=== PATIENT | female | born 1940 | race Caucasian/White ===

== ENCOUNTER → 2016-11-04 | Outpatient (CLI) | payer MEDICARE | LOC: GMAL 14:00 | PROVIDERS: ATTEND Family Medicine | DX: D53.9 Nutritional anemia, unspecified (principal) ==

== ENCOUNTER → 2017-02-03 | Outpatient (CLI) | payer MEDICARE | END | disposition home or self-care (01) | LOC: GMAL 14:38 | PROVIDERS: ATTEND Family Medicine | DX: D53.9 Nutritional anemia, unspecified (principal) ==

== ENCOUNTER → 2017-04-03 | Outpatient (CLI) | payer MEDICARE ==
--- NOTE | 2017-04-03 16:49 | MRI ---
EXAM: Brain w/wo Contrast CLINICAL INDICATION: 76-year-old female with headache. Technologist note: Per patient, her doctor thinks she had a stroke one week ago with right-sided numbness and left-sided headache. COMPARISON: None. TECHNIQUE: Multiplanar, multi-sequence MR imaging of the brain pre-and post intravenous administration of gadolinium. FINDINGS: No abnormal increased signal intensity is present on diffusion-weighted imaging to suggest restricted diffusion/acute infarction. However, a tiny linear focus of increased signal intensity is present within the RIGHT basal ganglia measuring 10 x 3 mm, (series 204, image 13) a nonspecific finding without associated decreased ADC signal intensity to suggest acute infarction, however may represent sequela of recent, although age indeterminate lacunar infarction, versus T2 shine through. T2/flair weighted imaging reveals multifocal areas of patchy increased signal intensity present in a subcortical and periventricular deep white matter distribution, a nonspecific finding however may be seen with small vessel ischemic change. T2-weighted imaging reveals a subcentimeter focal area of increased signal intensity present within the LEFT caudate compatible with sequela of chronic lacunar infarction. FLAIR weighted imaging reveals a focal area of increased signal intensity with central decreased signal intensity present at the level of the LEFT frontal periventricular deep white matter suggest cystic type lacunar infarction. There is no evidence of intracranial hemorrhage, mass or edema. Midline structures are within normal limits. No abnormal post gadolinium enhancement. The ventricles and sulci are slightly prominent suggesting underlying volume loss. Major intracranial flow voids are identified. The paranasal sinuses and mastoid air cells are patent. IMPRESSION: 1. No abnormal increased signal intensity is present on diffusion-weighted imaging to suggest restricted diffusion/acute infarction. 2. Tiny linear focus of increased signal intensity is present within the RIGHT basal ganglia measuring 10 x 3 mm, a nonspecific finding without associated decreased ADC signal intensity to suggest acute infarction, however may represent sequela of recent, although age indeterminate lacunar infarction versus T2 shine through. 3. T2/flair weighted imaging reveals multifocal areas of patchy increased signal intensity present in a subcortical and periventricular deep white matter distribution, a nonspecific finding however may be seen with small vessel ischemic change. Electronically signed by: Sherice Rosario MD 04/03/2017 4:48 PM CDT Workstation: [id number]
== END | disposition home or self-care (01) ==
LOC: MRI 10:35
PROVIDERS: ATTEND Family Medicine
DX: R51 Headache (principal)

== ENCOUNTER → 2017-05-12 | Outpatient (CLI) | payer MEDICARE | END | disposition home or self-care (01) | LOC: GMAL 10:47 | PROVIDERS: ATTEND Family Medicine | DX: D53.9 Nutritional anemia, unspecified (principal); E55.9 Vitamin D deficiency, unspecified ==

== ENCOUNTER → 2017-12-17 | Outpatient (CLI) | payer MEDICARE | LOC: GMAL 16:39 | PROVIDERS: ATTEND Family Medicine | DX: D50.8 Other iron deficiency anemias (principal) ==

== ENCOUNTER → 2017-12-31 | Outpatient (CLI) | payer MEDICARE | LOC: GMAL 17:40 | PROVIDERS: ATTEND Family Medicine | DX: R53.82 Chronic fatigue, unspecified (principal); E34.9 Endocrine disorder, unspecified ==

== ENCOUNTER → 2018-04-09 | Outpatient (CLI) | payer MEDICARE ==
--- NOTE | 2018-04-09 09:29 | CT ---
EXAM DESCRIPTION: Abdomen/Pelvis w/wo Contrast: Computed Tomography. CLINICAL HISTORY: ABDOMINAL PAIN COMPARISON: None. TECHNIQUE: Spiral-axial scans at 5.0 mm intervals through the abdomen and pelvis before and after standard dose nonionic IV contrast. Coronal and sagittal 2.0 mm reconstructions. No delayed scans. No adverse reactions. Total Exam DLP 507.37 mGy - cm. This exam was performed according to our departmental CT dose-optimization program which includes automated exposure control, adjustment of the mA and/or kV according to patient size and/or use of iterative reconstruction technique; to reduce radiation dose to as low as reasonably achievable (ALARA). FINDINGS: Lung bases and pleura: Minimal atelectasis in the posterior left lower lobe and bilateral pleural-based blebs. No acute infiltrate or pleural effusion. Coronary artery calcifications and stents. Liver, Stomach, Spleen, Adrenal Glands: Minimal intrahepatic biliary dilatation. Stomach distally with narrowed passage of the antrum and pylorus between the aorta and the abdominal wall (1.7 cm, series 4, image 36). Stomach otherwise Unremarkable. Other solid organs are negative. Third portion of the duodenum also narrow passage between the aorta and the anterior abdominal wall (1.2 cm, image 41). No bowel obstruction. Pancreas, Gallbladder, Ducts: Gallbladder is visualized. Common bile duct nondilated. Pancreas is atrophic. Kidneys and Ureters small subcentimeter cyst lateral right kidney. Otherwise unremarkable. Mesentery: No free fluid or free air. No fatty stranding or fascial thickening. Aorta: 2.6 cm diameter at the L2 level just above and below the renal artery origins. Approximately 25-30% diameter narrowing at these levels with peripheral calcification and intimal wall thickening. This is adjacent to the level where the duodenum and distal stomach pass over the anterior aorta. Lumbar spine abutting the posterior aorta. Marked calcification distally extending into the bilateral common iliac arteries. Celiac axis and the SMA origin at approximately 1:30 clock position from the aorta with moderate calcification. Calcification of the ostia of the bilateral renal arteries and the PANCHO.. Small Bowel: Scattered fluid and gas but no significant air-fluid levels or distention. Terminal Ileum/Cecum: Normal caliber. Normal caliber of the appendix containing gas. No fatty stranding or fluid. Colon: Minimal fecal material and gas proximally mid-colon. More decompressed distally. Pelvic Organs: Vaginal cuff is unremarkable. Ovaries are not seen. Minimal fluid in the cul-de-sac. Spine and Bony Pelvis: Spondylosis L5-S1 with bulging disc. Grade 1 anterolisthesis at L4-5 with bulging disc. Mild bilateral hip arthrosis.. Abdominal Wall/Back Soft Tissues: Small left fatty inguinal hernia not containing bowel. Minimal diastases at the umbilicus but not containing bowel. IMPRESSION: 1. Ectasia of the abdominal aorta and intimal wall thickening and calcification with 2.6 cm diameter above and below the renal arteries. 2.6 cm AAA Recommend follow-up every 5 years. Reference: J Vasc Surg 2009 Oct;50(4 Suppl):S2-49. 2. Ectatic aorta is compressing the third and fourth segment of the duodenum and the distal stomach against the abdominal wall which is only 1.5 cm distance due to patient body habitus. In addition spine is abutting the posterior aorta. This could be causing intermittent partial obstruction with stomach and duodenal peristalsis. Consider gastroenterology consultation. 3. Atherosclerosis of the origins of the celiac axis and SMA which exit the aorta at the 1:30 clock position. Also atherosclerotic calcification of the origins of the renal arteries and PANCHO. Significant atherosclerosis of the bilateral common iliac arteries. Consider CTA abdominal aorta and lower extremity runoff. 4. Minimal fluid in the cul-de-sac. No ascites. No free air or bowel obstruction. 5. Subcentimeter cyst lateral left kidney. Small fatty left inguinal hernia not containing bowel. Coronary artery calcifications and stents. Emphysematous changes in the lung bases. Electronically signed by: Nacho Disla MD 04/09/2018 9:27 AM CDT
--- NOTE | 2018-04-09 11:14 | US ---
Exam: Bilateral lower extremity arterial Doppler sonogram CLINICAL HISTORY: Claudication lower extremities TECHNIQUE: Doppler sonographic evaluation of the bilateral lower extremities was performed. FINDINGS: Right Submitted sonographic images reveal calcified plaque in the right superficial femoral artery and popliteal artery. There is positive flow in the vessels below the right knee. The following peak systolic flow flow velocity measurements were obtained: Common femoral artery velocity equals 81 centimeters per second , triphasic. Superficial femoral artery velocity equals 61-98 centimeters per second , biphasic. Popliteal artery velocity equals 66 centimeters per second , biphasic. Peroneal artery velocity equals 72 centimeters per second , biphasic. Posterior tibial artery shows no flow on Doppler exam. Dorsalis pedis artery velocity equals 26 centimeters per second , biphasic. Left Submitted sonographic images reveal calcified plaque in the left superficial femoral and popliteal arteries. There is positive flow in the vessels below the left knee. The following peak systolic flow flow velocity measurements were obtained: Common femoral artery velocity equals 68 centimeters per second , biphasic. Superficial femoral artery velocity equals 77-91 centimeters per second , biphasic. Popliteal artery velocity equals 44 centimeters per second , biphasic. Peroneal artery velocity equals 51.5 centimeters per second , biphasic. Posterior tibial artery flow is not identified on Doppler exam. Dorsalis pedis artery velocity equals 28 centimeters per second , biphasic. IMPRESSION: No flow is seen in the posterior tibial arteries on either side. Otherwise normal velocity multiphasic flow in the lower extremity arteries bilaterally. Electronically signed by: Abdullahi Florian MD 04/09/2018 11:12 AM CDT
== END ==
LOC: CT 07:41
PROVIDERS: ATTEND Family Medicine
DX: R10.9 Unspecified abdominal pain (principal); I73.89 Other specified peripheral vascular diseases; I77.819 Aortic ectasia, unspecified site; I70.0 Atherosclerosis of aorta; I70.1 Atherosclerosis of renal artery

== ENCOUNTER → 2018-04-22 | Outpatient (CLI) | payer MEDICARE ==
--- NOTE | 2018-04-22 14:05 | MRI ---
EXAM DESCRIPTION: Lumbar Spine w/o Contrast : Magnetic Resonance Imaging. CLINICAL HISTORY: R29.898. Other symptoms and signs involving the musculoskeletal system. COMPARISON: None. TECHNIQUE: Multiplanar, multiple standard sequences, non contrast MRI, lumbar spine. FINDINGS: L5-S1: T2 axial sequence #501, image 3. Disc desiccation and minimal disc space loss. Tiny anterior and posterior bulge. Left facet arthrosis. Modic type I endplate reactive changes on the left. Disc spur complex encroaching on the exiting left L5 nerve. Disc in the right foramen abutting the right L5 nerve. Rudimentary S1-S2 disc. L4-5: Disc desiccation and disc space maintained. Grade 1 anterolisthesis. Posterior broad-based bulge with left paracentral right T2-weighted annular fissure. Ligament hypertrophy and facet arthrosis bilaterally. Mild to moderate canal narrowing. Mild foraminal narrowing bilaterally. L3-4 minimal disc desiccation. No significant bulging. Mild flavum ligament hypertrophy. Canal and foramina are patent. L2-3: Normal signal in the disc and disc space maintained. Posterior elements unremarkable. Canal and foramina are patent. L1-2: Normal signal in the disc and disc space maintained. Posterior elements unremarkable. Canal and foramina are patent. T12-L1: Minimal disc desiccation and disc space maintained. Posterior elements unremarkable. Canal and foramina are patent. Conus terminates at this level. Minimal lumbar dextroscoliosis. Spondylosis anatomic. Paravertebral soft tissues minimal muscle atrophy.. Otherwise normal marrow signal in the remaining vertebral bodies and the posterior elements. Vertebral bodies are not compressed at any level. IMPRESSION: 1. Disc desiccation at multiple levels. Mild spondylosis on the left side of L5-S1 with disc spur complex encroaching on the exiting left L5 nerve. Correlate for radiculopathy. 2. L4-5 disc desiccation and grade 1 anterolisthesis. Left posterior disc annular fissure. Mild to moderate canal and foraminal narrowing. Electronically signed by: Nacho Disla MD 04/22/2018 2:03 PM CDT
--- NOTE | 2018-04-23 09:23 | CT ---
EXAM DESCRIPTION: CTA Runoff CLINICAL HISTORY: 77 years Female, evaluate for atherosclerosis disease of the aorta. COMPARISON: CT abdomen and pelvis dated 04/09/2008. TECHNIQUE: Contiguous 3 mm axial images were obtained from the lung bases to the level of the feet after the administration of intravenous contrast in arterial phase. Sagittal and coronal reconstructions were reviewed. 3-D reconstructions were performed as well. FINDINGS: Angiographic evaluation: The descending thoracic aorta measures 2.3 cm in greatest dimension. There is normal anatomic branching of the celiac trunk, superior and inferior mesenteric arteries. Significant atherosclerotic disease is noted in the origin of the right renal artery with approximately 70-80% stenosis. There is post stenotic dilatation noted. The left renal artery also demonstrates mild atherosclerosis at the origin with approximately 40% stenosis. There is ectasia of the infrarenal abdominal aorta measuring 2.3 x 2.5 cm. The bilateral common iliac arteries also appear ectatic with moderate atherosclerotic disease. The bilateral external iliac arteries demonstrate good contrast opacification. Moderate atherosclerosis is noted in the bilateral internal iliac arteries. The right common femoral, superficial femoral and deep femoral arteries demonstrate good contrast opacification with no significant stenosis. Minimal atherosclerosis is noted in the right popliteal artery. 2. vessel runoff is identified on the right side. There is abrupt cut off of the right posterior tibial artery in the proximal leg. The left common femoral, superficial femoral and deep femoral arteries demonstrate good contrast opacification. The left popliteal artery demonstrates minimal atherosclerosis with no significant stenosis. Two-vessel runoff is identified on the left side. The posterior tibial artery is not visualized distal to the proximal leg. Non-angiographic evaluation. THORAX: The imaged lower thorax demonstrates no gross abnormality. LIVER: The dome of the liver is not included on this examination. Visualized portions of the liver appear normal. GALLBLADDER: Grossly unremarkable. PANCREAS: Appears normal with no cystic or solid lesions. SPLEEN: Superior aspect of the spleen is not seen on this examination. Visualized portions of the spleen appear normal. ADRENAL GLANDS: Normal with no nodules or masses. KIDNEYS: Both kidneys enhance symmetrically with no hydronephrosis or nephrolithiasis or perinephric fluid collections. No focal masses are identified. The visualized ureters appear grossly unremarkable. STOMACH: The stomach is not well-distended limiting detailed evaluation. SMALL BOWEL: The small bowel loops demonstrate variable degrees of distention with no abnormal dilatation or other signs to suggest bowel obstruction. LARGE BOWEL: Mild constipation is noted. No evidence of free intraperitoneal air or fluid. RETROPERITONEUM: The inferior vena cava is normal in size and caliber. No abnormally enlarged retroperitoneal lymph nodes are identified. URINARY BLADDER: The urinary bladder is mildly distended without gross abnormality. The uterus and ovaries are surgically absent. ADDITIONAL FINDINGS: None. BONES: Mild degenerative changes are identified in the visualized bones.No evidence of osteophytic or osteoblastic lesions. IMPRESSION: 1. Two-vessel runoff is identified bilaterally. 2. Ectatic abdominal aorta with moderate to severe atherosclerotic disease extending into the bilateral common iliac arteries. 3. Severe atherosclerotic disease at the origin of the right renal artery with approximately 70-80% stenosis. Mild atherosclerotic disease of the origin of the left renal artery with 40% stenosis. This exam was performed according to our departmental dose-optimization program, which includes automated exposure control, adjustment of the mA and/or kV according to patient size and/or use of iterative reconstruction technique. Electronically signed by: Neris Sotelo MD 04/23/2018 9:22 AM CDT
== END ==
LOC: CT 08:54
PROVIDERS: ATTEND Family Medicine
DX: I77.811 Abdominal aortic ectasia (principal); I70.0 Atherosclerosis of aorta; I70.8 Atherosclerosis of other arteries; I70.1 Atherosclerosis of renal artery; M48.07 Spinal stenosis, lumbosacral region; M51.36 Other intervertebral disc degeneration, lumbar region; R29.898 Other symptoms and signs involving the musculoskeletal system; R10.9 Unspecified abdominal pain

== ENCOUNTER → 2018-11-04 | Outpatient (CLI) | payer MEDICARE | LOC: GMAL 14:14 | PROVIDERS: ATTEND Family Medicine | DX: D51.3 Other dietary vitamin B12 deficiency anemia (principal); R53.82 Chronic fatigue, unspecified; E55.9 Vitamin D deficiency, unspecified; D50.8 Other iron deficiency anemias; Z79.899 Other long term (current) drug therapy ==

== ENCOUNTER 2018-12-28 12:55 | Emergency (ER) | payer MEDICARE ==
[2018-12-28 13:18] VITALS: TEMP 97.9
[2018-12-28] MEDS: MORPHINE SULFATE INJ 10 MG/ML VIAL IM ONE (13:40)
--- NOTE | 2018-12-28 13:40 | ED.PDOC ---
History of Present Illness - General Chief Complaint: General Stated Complaint: abd pain, leg pain, headache Time Seen by Provider: 12/28/18 13:26 Source: patient Exam Limitations: no limitations - History of Present Illness Initial Comments: C/O 3-4 WKS OF R LBP. SHE IS ON CHRONIC NORCO; RAN OUT 2 D AGO. SHE [address]W [address] NAVAS WHO INFORMED HER SHE IS NOT DUE FOR REFILLS FOR 2 D. PT FELL LAST NIGHT ONTO HER R HIP AND C/O OF WORSENING R HIP AND LBP. NOTE: STAFF IS BEING VERY KIND AND RESPECTFUL, YET PT IS BEING VERY RUDE WITH STAFF AND HOLLERING COMMANDS. Timing/Duration: constant Severity: severe Improving Factors: nothing Worsening Factors: movement Associated Symptoms: denies symptoms Allergies/Adverse Reactions: Allergies NO KNOWN ALLERGY Allergy (Verified 12/28/18 13:16) Home Medications: Ambulatory Orders Dicyclomine HCl [Bentyl] 20 mg PO TID PRN 12/28/18 HYDROcodone 10MG/APAP 325MG [Prentiss 10/325] 0 ea PO .Q4H 12/28/18 Methylprednisolone [Medrol Dose Tony] 4 mg PO DAILY #1 tab 12/28/18 Review of Systems - Review of Systems Constitutional: States: no symptoms reported EENTM: States: no symptoms reported Respiratory: States: no symptoms reported Cardiology: States: no symptoms reported Gastrointestinal/Abdominal: States: no symptoms reported Genitourinary: States: no symptoms reported Musculoskeletal: States: see HPI, back pain. Denies: neck pain Skin: States: no symptoms reported Neurological: Denies: headache, paresthesia, weakness Endocrine: States: no symptoms reported Hematologic/Lymphatic: States: no symptoms reported All other Systems: Reviewed and Negative Past Medical History (General) - Patient Medical History Hx Renal Disease: Yes Hx Cancer: No Hx Hepatitis C: No Surgical History: Hysterectomy - Vaccination History Hx Tetanus, Diphtheria Vaccination: No Hx Influenza Vaccination: No Hx Pneumococcal Vaccination: No Immunizations Up to Date: No - Social History Hx Tobacco Use: Yes Hx Alcohol Use: No Hx Substance Use: No Hx Substance Use Treatment: No Hx Depression: No Family Medical History - Family History Mother Family History: Unknown Physical Exam - Physical Exam General Appearance: Agitated, Alert, Obvious distress Eye Exam: bilateral normal Ears, Nose, Throat: hearing grossly normal, normal ENT inspection Neck: non-tender, full range of motion, supple, normal inspection Respiratory: chest non-tender, lungs clear, normal breath sounds Cardiovascular/Chest: normal peripheral pulses, regular rate, rhythm Gastrointestinal/Abdominal: normal bowel sounds, non tender, soft, no organomegaly, no pulsatile mass Rectal Exam: deferred Back Exam: no CVA tenderness, vertebral tenderness Extremity: non-tender, normal inspection, no pedal edema, no calf tenderness, pelvis stable, other - POS BL SLR. POS CHAI AND FADIR BL. Neurologic: lightning rod erector II-XII nml as tested, no motor/sensory deficits, alert, oriented x 3 DTR: 4+: Patellar, left, Patellar, right Skin Exam: normal color, warm/dry Lymphatic: no adenopathy Progress - Progress Progress: 12/28/18 14:50 PAIN IMPROVED WITH MORPHINE. 12/28/18 14:58 R HIP XRAY NEG. LUMBAR XRAY: SPONDYLOLISTHESIS AND FACES SCLEROSIS L4/5. L5/S1 DDD. F/U W/ PCP FOR FURTHER EVAL AND CARE. Departure - Departure Clinical Impression: Spondylolisthesis at L4-L5 level, Facet arthropathy, lumbar, Degenerative disc disease at L5-S1 level Low back pain Qualifiers: Chronicity: acute Back pain laterality: bilateral Sciatica presence: with sciatica Sciatica laterality: sciatica of right side Qualified Code(s): M54.41 - Lumbago with sciatica, right side Disposition: Discharge to Home or Self Care Condition: Good Departure Forms: ED Discharge - Pt. Copy, Patient Portal Self Enrollment Instructions: Degenerative Disc Disease (DC) Diet: resume usual diet Activity: increase activity as tolerated Referrals: Jaret Navas III, MD [Primary Care Provider] - 1-2 Days Prescriptions: Methylprednisolone [Medrol Dose Tony] 4 mg PO DAILY #1 tab Home Medications: Ambulatory Orders Dicyclomine HCl [Bentyl] 20 mg PO TID PRN 12/28/18 HYDROcodone 10MG/APAP 325MG [Prentiss 10/325] 0 ea PO .Q4H 12/28/18 Methylprednisolone [Medrol Dose Tony] 4 mg PO DAILY #1 tab 12/28/18 Additional Instructions: Please see Dr. Navas at you appointment in 2 days for further care.
--- NOTE | 2018-12-28 14:18 | RAD ---
EXAM DESCRIPTION: Hip,Right 2 Views CLINICAL HISTORY: FELL LAST NIGHT ONTO R HIP; R HIP AND LUMBAR PAIN. COMPARISON: None Available. TECHNIQUE: AP/frog leg lateral FINDINGS: Two views of the right hip demonstrate mild joint space narrowing and mild degenerative arthropathy with intact femoral head and neck and trochanteric region. No fracture or dislocation is seen. The visualized right hemipelvis is normal. IMPRESSION: Mild degenerative changes otherwise negative hip Electronically signed by: Rainer Carrasco MD 12/28/2018 2:14 PM CDT
--- NOTE | 2018-12-28 14:21 | RAD ---
EXAM DESCRIPTION: Lumbar Spine 3 Views CLINICAL HISTORY: FELL LAST NIGHT ONTO R HIP; R HIP AND LUMBAR PAIN. COMPARISON: None Available. TECHNIQUE: Three views lumbar spine FINDINGS: Three views lumbar spine demonstrate degenerative disc narrowing at L5-S1 and grade 1 spondylolisthesis at L4-5 with an estimated approximate 9 mm of anterior slip. Facet sclerosis is present. I am uncertain whether this is on the basis of pars defects or degenerative facet disease but the possibility of significant stenosis at the L4-5 level should be considered. No vertebral collapse is seen. No additional abnormalities noted. IMPRESSION: Grade 1, borderline grade 2 spondylolisthesis L4-5 level with advanced facet sclerosis at this level and degenerative L5-S1 level with normal alignment. No acute fracture noted. Electronically signed by: Rainer Carrasco MD 12/28/2018 2:18 PM CDT
[2018-12-28] MEDS: methylPREDNISolone ACETATE 80 MG/ML VIAL IM ONE (15:04)
[2018-12-28 15:18] VITALS: BP 143/78; O2SAT 98
== END 2018-12-28 15:18 | disposition home or self-care (01) ==
LOC: ER 12:55
DX: M43.16 Spondylolisthesis, lumbar region (principal); M51.17 Intervertebral disc disorders with radiculopathy, lumbosacral region; M25.551 Pain in right hip; N18.9 Chronic kidney disease, unspecified; Z87.891 Personal history of nicotine dependence; Z79.899 Other long term (current) drug therapy; Z79.891 Long term (current) use of opiate analgesic
CPT/HCPCS: 72100; 73502; J1030; J2270

== ENCOUNTER → 2019-03-30 | Outpatient (CLI) | payer MEDICARE ==
--- NOTE | 2019-03-31 11:23 | MRI ---
EXAM DESCRIPTION: Brain w/oContrast CLINICAL HISTORY: Weakness of extremities, late effect of stroke COMPARISON: None available TECHNIQUE: Non contrast MRI of the brain is performed according to our usual protocol including multiplanar multi sequence technique. FINDINGS: Sagittal T1 images show intact corpus callosum. Normal pituitary gland with normal T1 appearance of the patrizia and medulla and upper cervical cord. Normal signal intensity within the clivus and calvarium. Axial T2 fat sat images reveal preservation of intracranial vascular flow voids. Prominent perivascular spaces with multiple old lacunar infarcts in the left thalamus, basal ganglia and patrizia. Prominent ventricles and sulci consistent with age-related cerebral volume loss. Extensive white matter hyperintensities from chronic microvascular ischemic disease. The globes appear intact and symmetrical. No abnormal fluid signal in the paranasal sinuses, tympanic cavities or mastoid air cells. Axial flair images show extensive chronic microvascular ischemic changes in the cerebral white matter, subcortical and central in location. Multiple old lacunar infarcts in the basal ganglia. Diffusion weighted images are negative for focal intense increased signal intensity in the brain parenchyma to suggest restricted diffusion. ADC mapping is negative. Axial T1 images show normal perez-white matter differentiation. No high signal intensity hemorrhagic lesion of the brain parenchyma. No subdural hematoma. Axial susceptibility weighted images are unremarkable other than mild benign signal loss in the basal ganglia and midbrain. IMPRESSION: Senescent brain with extensive chronic microvascular ischemic changes and old lacunar infarcts. No acute intracranial pathologic process. Electronically signed by: Abdullahi Florian MD 03/31/2019 11:21 AM CDT
== END ==
LOC: MRI 13:54
PROVIDERS: ATTEND Family Medicine
DX: I67.82 Cerebral ischemia (principal); R29.898 Other symptoms and signs involving the musculoskeletal system

== ENCOUNTER → 2020-10-23 | Outpatient (CLI) | payer MEDICARE | LOC: GMAL 12:42 | PROVIDERS: ATTEND Family Medicine | DX: D64.9 Anemia, unspecified (principal); E55.9 Vitamin D deficiency, unspecified; R53.82 Chronic fatigue, unspecified; Z79.899 Other long term (current) drug therapy ==